=== PATIENT | male | born 1985 | race Caucasian/White ===

== ENCOUNTER 2016-04-08 10:15 | Inpatient (IN) | payer OTHER ==
[~2016-04-08] VITALS: Ht 167.6 cm; Wt 51.8 kg
[~2016-04-08 10:15] MED LIST: DULCOLAX5 MG PO; FIORICET,ESG1 TABLET PO; LAMICTAL200 MG PO; PERCOCET 5/31 TABLET PO; TOPAMAX25 MG PO
[2016-04-08 11:36] LABS: BASE EXCESS -0.5 mEq/L (-3 to +3); BICARBONATE 23.1 mEq/L (22-26); CARBOXY HGB 1.9 % (0-5); COMMENTS - BLOOD GASES A+C+; DEVICE RA; METHEMOGLOBIN 1.1 % (0-1.5); PCO2 34 mm Hg (35-45); PO2 90 mm Hg (80-100); SITE LR; pH 7.44 (7.35-7.45)
[2016-04-08 11:47] LABS: EOSINOPHIL (%) 0 % (0-5); HEMATOCRIT 38.9 % (38.0-50.0); IMMATURE GRANULOCYTE (%) 0.1 % (0.0-0.7); IMMATURE GRANULOCYTE COUNT 0.1 K/uL; LYMPHOCYTE COUNT 0.6 K/uL (1.0-2.8); MCH 28.9 PG (29.0-34.0); MCHC 35.5 G/DL (30.0-36.0); MCV 81.6 FL (86-99); MEAN PLAT.VOLUME 8.8 uM^3 (9.0-12.4); MONOCYTE (%) 10.9 % (3-12); MONOCYTE COUNT 0.8 K/uL (0-0.8); NEUTROPHIL COUNT 5.6 K/uL (1.8-6.4); PLATELET COUNT 170 K/uL (156-360); RBC DIS.WIDTH-CV 12.4 % (11.8-14.6); RBC DIS.WIDTH-SD 36.3 % (39-53); RED BLOOD COUNT 4.77 M/uL (4.00-5.50)
[2016-04-08 11:57] LABS: D-DIMER ELISA 0.26 mg/L FEU (< 0.57)
[2016-04-08 11:58] LABS: CHLORIDE 97 mEq/L (99-109); POTASSIUM 3.4 mEq/L (3.7-5.4); SODIUM 129 mEq/L (136-147)
[2016-04-08 12:00] LABS: GLUCOSE 96 mg/dL (70-99)
[2016-04-08 12:01] LABS: ANION GAP 11 MEQ/L (2-14)
[2016-04-08 12:02] LABS: TOTAL BILIRUBIN 0.6 mg/dL (0.0-1.0)
[2016-04-08 12:04] LABS: ALKALINE PHOSPHATASE 54 IU/L (3-129); GFR ESTIMATE (CALCULATED) > 59 mL/min/
[2016-04-08 12:05] LABS: UREA NITROGEN (BUN) 12 mg/dL (9-23)
[2016-04-08 12:08] LABS: TROP-I INTERPRETATION NEGATIVE; TROPONIN-I < 0.01 ng/mL (0.0-0.30)
[2016-04-08 12:40] LABS: ADD MIUA? YES; BILIRUBIN NEGATIVE; BLOOD TRACE; COLOR YELLOW ((YELLOW)); GLUCOSE (STRIP) NEGATIVE; KETONES NEGATIVE; LEUKOCYTES NEGATIVE; NITRITE NEGATIVE; PH, URINE 6.5 (5-8); PROTEIN (STRIP) NEGATIVE; SPECIFIC GRAVITY 1.016 (1.000-1.030)
[2016-04-08 12:56] LABS: BACTERIA RARE; CASTS NONE SEEN /LPF; CRYSTALS NONE SEEN; EPITHELIAL CELLS RARE; MUCUS NONE SEEN; RED BLOOD CELLS RARE /HPF (0-5); UCUL ADDED? NO; WHITE BLOOD CELLS NONE SEEN /HPF (0-5)
[2016-04-08] MEDS ORDERED: LAMOTRIGINE100 MG PO (13:14)
[2016-04-08] MEDS ORDERED: BOTOX100 UNITS IJ ×2 (13:15→15:43)
[2016-04-08] MEDS ORDERED: TOPIRAMATE50 MG PO (13:15)
[2016-04-08] MEDS ORDERED: PROTRIPTYLINE HC5 MG PO (13:16)
[2016-04-08 15:30] LABS: INFLUENZA A VIRAL ANTIGEN NEGATIVE; INFLUENZA B VIRAL ANTIGEN NEGATIVE
[2016-04-08 21:10] VITALS: BP 115/78; BP 117/68
[2016-04-09] VITALS: BP 120/74
[2016-04-09 04:03] VITALS: BP 114/54
[2016-04-09 07:08] LABS: HEMATOCRIT 34.8 % (38.0-50.0); MCH 28.8 PG (29.0-34.0); MCHC 33.9 G/DL (30.0-36.0); MCV 84.9 FL (86-99); PLATELET COUNT 131 K/uL (156-360); RBC DIS.WIDTH-CV 12.6 % (11.8-14.6); RBC DIS.WIDTH-SD 38.9 % (39-53)
[2016-04-09 07:15] LABS: WHITE BLOOD COUNT 4.8 K/uL (4.1-10.2)
[2016-04-09 07:18] LABS: ANION GAP 10 MEQ/L (2-14); CHLORIDE 104 MEQ/L (99-109); GFR ESTIMATE (CALCULATED) > 59 mL/min/; GLUCOSE 108 mg/dL (70-99); POTASSIUM 3.7 MEQ/L (3.7-5.4); SAMPLE HEMOLYSIS CHECK 0; SAMPLE ICTERIC CHECK 0; SAMPLE LIPEMIA CHECK 0; SODIUM 131 MEQ/L (136-147); UREA NITROGEN (BUN) 6 mg/dL (9-23)
[2016-04-09 08:21] VITALS: BP 142/66
[2016-04-09 12:47] VITALS: BP 98/57
[2016-04-09 17:10] VITALS: BP 126/58
[2016-04-09 19:40] VITALS: BP 114/59
[2016-04-10 00:25] VITALS: BP 118/68
[2016-04-10 03:25] VITALS: BP 104/55
[2016-04-10 05:12] LABS: HEMATOCRIT 36.5 % (38.0-50.0); MCH 28.5 PG (29.0-34.0); MCHC 33.4 G/DL (30.0-36.0); MCV 85.3 FL (86-99); MEAN PLAT.VOLUME 9.4 uM^3 (9.0-12.4); PLATELET COUNT 141 K/uL (156-360); RBC DIS.WIDTH-CV 12.8 % (11.8-14.6); RBC DIS.WIDTH-SD 39.6 % (39-53); RED BLOOD COUNT 4.28 M/uL (4.00-5.50); WHITE BLOOD COUNT 3.5 K/uL (4.1-10.2)
[2016-04-10 05:40] LABS: ANION GAP 7 MEQ/L (2-14); CHLORIDE 106 MEQ/L (99-109); GFR ESTIMATE (CALCULATED) > 59 mL/min/; GLUCOSE 91 mg/dL (70-99); POTASSIUM 3.4 MEQ/L (3.7-5.4); SAMPLE HEMOLYSIS CHECK 0; SAMPLE ICTERIC CHECK 0; SAMPLE LIPEMIA CHECK 0; SODIUM 134 MEQ/L (136-147); UREA NITROGEN (BUN) 4 mg/dL (9-23)
[2016-04-10 06:13] LABS: EOSINOPHIL (%) 0.9 % (0-5); HEMATOLOGY COMMENT 1 REV; IMMATURE GRANULOCYTE (%) 0.3 % (0.0-0.7); LYMPHOCYTE COUNT 1.3 K/uL (1.0-2.8); MONOCYTE (%) 18.2 % (3-12); MONOCYTE COUNT 0.6 K/uL (0-0.8); NEUTROPHIL (%) 42.5 % (45-76); NEUTROPHIL COUNT 1.5 K/uL (1.8-6.4); USER ID SLU
[2016-04-10 08:07] VITALS: BP 154/65
[2016-04-10 10:57] LABS: HIV-1/2 AB/AG COMBO Nonreactive
[2016-04-10 16:13] VITALS: BP 130/68
[2016-04-10 20:00] VITALS: BP 102/57
[2016-04-11] VITALS (7 sets, daily range): BP systolic 106–137; BP diastolic 56–85
[2016-04-11 07:16] LABS: BASOPHIL COUNT 0.1 K/uL (0-0.1); EOSINOPHIL (%) 1.7 % (0-5); EOSINOPHIL COUNT 0.1 K/uL (0-0.3); HEMATOCRIT 37.5 % (38.0-50.0); IMMATURE GRANULOCYTE (%) 0.2 % (0.0-0.7); LYMPHOCYTE COUNT 1.8 K/uL (1.0-2.8); MCHC 32.8 G/DL (30.0-36.0); MCV 85.2 FL (86-99); MEAN PLAT.VOLUME 9.1 uM^3 (9.0-12.4); MONOCYTE (%) 15.5 % (3-12); MONOCYTE COUNT 0.6 K/uL (0-0.8); NEUTROPHIL (%) 38.5 % (45-76); NEUTROPHIL COUNT 1.6 K/uL (1.8-6.4); PLATELET COUNT 155 K/uL (156-360); RBC DIS.WIDTH-CV 12.8 % (11.8-14.6); RBC DIS.WIDTH-SD 39.8 % (39-53); WHITE BLOOD COUNT 4.1 K/uL (4.1-10.2)
[2016-04-11 07:40] LABS: ANION GAP 6 MEQ/L (2-14); CHLORIDE 107 MEQ/L (99-109); GFR ESTIMATE (CALCULATED) > 59 mL/min/; GLUCOSE 100 mg/dL (70-99); SAMPLE HEMOLYSIS CHECK 0; SAMPLE ICTERIC CHECK 0; SAMPLE LIPEMIA CHECK 0; SODIUM 136 MEQ/L (136-147); UREA NITROGEN (BUN) 3 mg/dL (9-23)
[2016-04-12 04:05] VITALS: BP 118/64
[2016-04-12 06:13] LABS: EOSINOPHIL (%) 1.7 % (0-5); EOSINOPHIL COUNT 0.1 K/uL (0-0.3); HEMATOCRIT 39.1 % (38.0-50.0); IMMATURE GRANULOCYTE (%) 0.2 % (0.0-0.7); LYMPHOCYTE COUNT 2.1 K/uL (1.0-2.8); MCV 85.4 FL (86-99); MEAN PLAT.VOLUME 9.2 uM^3 (9.0-12.4); MONOCYTE (%) 12.7 % (3-12); MONOCYTE COUNT 0.6 K/uL (0-0.8); PLATELET COUNT 191 K/uL (156-360); RBC DIS.WIDTH-CV 12.7 % (11.8-14.6); RBC DIS.WIDTH-SD 39.4 % (39-53); RED BLOOD COUNT 4.58 M/uL (4.00-5.50); WHITE BLOOD COUNT 4.8 K/uL (4.1-10.2)
[2016-04-12 06:30] LABS: ANION GAP 7 MEQ/L (2-14); CHLORIDE 105 MEQ/L (99-109); GFR ESTIMATE (CALCULATED) > 59 mL/min/; GLUCOSE 99 mg/dL (70-99); SAMPLE HEMOLYSIS CHECK 0; SAMPLE ICTERIC CHECK 0; SAMPLE LIPEMIA CHECK 0; SODIUM 136 MEQ/L (136-147); UREA NITROGEN (BUN) 3 mg/dL (9-23)
[2016-04-12 07:30] VITALS: BP 120/72
[2016-04-12 11:30] VITALS: BP 116/64
[2016-04-12 15:45] VITALS: BP 117/69
[2016-04-12 19:50] VITALS: BP 128/77
[2016-04-12 23:49] VITALS: BP 125/67
[2016-04-13 03:48] VITALS: BP 126/60
[2016-04-13 07:40] VITALS: BP 115/68
[2016-04-13 11:43] VITALS: BP 119/62
[2016-04-13 15:50] VITALS: BP 128/74
[2016-04-13] MEDS ORDERED: VALACYCLOVIR500 MG PO (19:36)
[2016-04-13] MEDS ORDERED: FLUCONAZOLE200 MG PO (19:36)
[2016-04-13] MEDS ORDERED: Tylenol PO (19:37)
[2016-04-13] MEDS ORDERED: Magic Mouthwash Garg MM (19:37)
[2016-04-13] MEDS ORDERED: Robitussin AC,Tussi- PO (19:38)
[2016-04-13] MEDS ORDERED: OMEPRAZOLE20 M2 PO (19:57)
[2016-04-14 13:23] LABS: HLA-B27 Antigen+ Negative (Negative)
[2016-04-15 10:10] LABS: HSV-1 IgG Antibody 1.25 (<0.90); HSV-2 IgG Antibody 0.04 (<0.90)
== END 2016-04-13 20:51 | disposition home or self-care (01) | DRG 158 ==
LOC: EME 10:15 → 4SOUTH 14:31 → EDOF 14:31 → 4SOUTH 21:12
PROVIDERS: Emergency Medicine; Family Medicine; Internal Medicine Infectious Disease
DX: B00.2 Herpesviral gingivostomatitis and pharyngotonsillitis (principal); B37.0 Candidal stomatitis; E87.2 Acidosis; E87.1 Hypo-osmolality and hyponatremia; K20.8 Other esophagitis; G40.909 Epilepsy, unspecified, not intractable, without status epilepticus; R13.10 Dysphagia, unspecified; B18.2 Chronic viral hepatitis C; F17.210 Nicotine dependence, cigarettes, uncomplicated; I95.9 Hypotension, unspecified; G43.909 Migraine, unspecified, not intractable, without status migrainosus; D64.9 Anemia, unspecified; D69.6 Thrombocytopenia, unspecified; Z88.0 Allergy status to penicillin
CPT/HCPCS: 36600; 71020; 71275; 80048; 80053; 80185; 81003; 82803; 83605; 84484; 85025; 85027; 85379; 86695 90; 86696 90; 86703; 86812 90; 87040; 87177; 87254; 87502; 88108; 88305; 93005; 93971; 99281; 99285; B4087; J2250; J2270; J2405; J3010; J7030; J7042

== ENCOUNTER 2017-03-10 19:01 | Emergency (ER) | payer OTHER ==
[~2017-03-10] VITALS: Ht 170.2 cm; Wt 61.4 kg
[~2017-03-10 19:01] MED LIST changes: +BOTOX100 UNITS IJ; +FLUCONAZOLE200 MG PO; +LAMOTRIGINE100 MG PO; +Magic Mouthwash Garg MM; +OMEPRAZOLE20 M2 PO; +PROTRIPTYLINE HC5 MG PO; +Robitussin AC,Tussi- PO; +TOPIRAMATE50 MG PO; +Tylenol PO; +VALACYCLOVIR500 MG PO
[2017-03-10 21:48] VITALS: BP 129/59
== END 2017-03-10 21:54 | disposition home or self-care (01) ==
LOC: EME 19:01
DX: S90.32XA Contusion of left foot, initial encounter (principal); W17.89XA Other fall from one level to another, initial encounter; G40.909 Epilepsy, unspecified, not intractable, without status epilepticus; J44.9 Chronic obstructive pulmonary disease, unspecified; Z88.0 Allergy status to penicillin
CPT/HCPCS: 73610; 73630; 99281; 99284; J1885

== ENCOUNTER 2017-08-19 13:59 | Emergency (ER) | payer OTHER ==
[~2017-08-19] VITALS: Ht 170.2 cm; Wt 57.9 kg
[2017-08-19 19:30] VITALS: BP 116/73
== END 2017-08-19 19:31 | disposition home or self-care (01) ==
LOC: EME 13:59
DX: R56.9 Unspecified convulsions (principal); G89.29 Other chronic pain; G40.909 Epilepsy, unspecified, not intractable, without status epilepticus; G43.909 Migraine, unspecified, not intractable, without status migrainosus; B19.20 Unspecified viral hepatitis C without hepatic coma; R01.1 Cardiac murmur, unspecified; F17.200 Nicotine dependence, unspecified, uncomplicated; Z88.0 Allergy status to penicillin
CPT/HCPCS: 80164; 99281; 99285